=== PATIENT | male | born 1985 | race Caucasian/White ===

== ENCOUNTER 2021-06-10 18:44 | Emergency (ER) | payer BC ==
[2021-06-10 19:23] VITALS: BP 145/77; PULSE 93; BMI 25.8
[2021-06-10] MEDS ORDERED: ACETAMINOPHEN 500 MG TABLET (FP) PO ONE (19:27)
[2021-06-10] MEDS ORDERED: ACETAMINOPHEN 500 MG TABLET (FP) ONE (19:28)
[2021-06-10] MEDS ORDERED: AZITHROMYCIN 250 MG TABLET PO ONE (19:33)
[2021-06-10] MEDS ORDERED: AZITHROMYCIN 250 MG TABLET ONE (19:35)
[2021-06-10 20:05] VITALS: TEMP 102.7
== END 2021-06-10 20:01 | disposition home or self-care (01) ==
LOC: FER 18:44
DX: R50.9 Fever, unspecified (principal); R05.1 Acute cough; J09.X2 Influenza due to identified novel influenza A virus with other respiratory manifestations
CPT/HCPCS: 87804; 99283-25